=== PATIENT | male | born 1970 | race African-American/Black ===

== ENCOUNTER 2022-10-10 09:10 | Emergency (ER) | payer MEDICAID ==
[~2022-10-10] VITALS: Ht 188 cm; Wt 216.0 kg
[2022-10-10] VITALS (35 sets, daily range): BP systolic 58–153; BP diastolic 26–106
[2022-10-10 09:43] LABS: BASO% 0.2 % (0-3); EOS% 0.8 % (0-8); HEMATOCRIT 44.7 % (39.0-50.0); HEMOGLOBIN 13.6 g/dl (14.0-18.0); IMMATURE GRANULOCYTES 0.3 % (0.0-5.0); LYMPH% 11.4 % (15-41); MEAN CELL VOLUME 93.9 fL CALC (80.0-100.0); MEAN CORPUSCULAR HGB 28.6 pG CALC (26.0-32.0); MEAN CORPUSCULAR HGB CONC 30.4 g/dL CAL (32.0-36.0); MONO% 7.2 % (2-13); NEUT# 9.33 thou/uL (1.82-7.42); NEUT% 80.1 % (42-76); RED BLOOD COUNT 4.76 mill/uL (4.70-6.10); RED CELL DISTRI WIDTH 13.6 % (11.5-15.5)
[2022-10-10 09:53] LABS: ALBUMIN 3.8 g/dL (3.2-5.0); ALKALINE PHOSPHATASE 126 u/l (38-126); ANION GAP 13 (6-22 (CALC)); BILIRUBIN, TOTAL 0.8 mg/dL (0.2-1.3); BUN 17 mg/dL (9-20); BUN/CREATININE RATIO 16 (12-20 (CALC)); CARBON DIOXIDE 26 mmol/l (22-30); CHLORIDE 102 mmol/l (95-108); CREATININE 1.1 mg/dL (0.7-1.3); GFR FOR AFR.AMER. > 60 ML/MIN (>=60 (CALC)); GFR OTHER RACES > 60 ML/MIN (>=60 (CALC)); POTASSIUM 4.5 mmol/l (3.5-5.1); SGOT/AST 38 u/l (17-59); SODIUM 136 mmol/l (137-146); TOTAL PROTEIN 7.8 g/dL (6.3-8.2)
[2022-10-10] MEDS ORDERED: LISINOPRIL5 MG PO (10:44)
[2022-10-10] MEDS ORDERED: JARDIANCE10 MG (10:46)
[2022-10-10] MEDS ORDERED: HUMULIN 70/30 K1 INJ (10:46)
[2022-10-10] MEDS ORDERED: BD PEN NEEDL32 GX4MM (10:46)
[2022-10-10] MEDS ORDERED: AMLODIPINE BESYL5 MG PO (10:47)
[2022-10-10] MEDS ORDERED: CEPHALEXIN500 MG PO (10:47)
[2022-10-10] MEDS ORDERED: DEMADEX20 MG PO (10:47)
[2022-10-10 11:05] LABS: ACT PARTIAL THROMBO TIME 25.7 SECONDS (20.0-32.5)
== END 2022-10-10 18:44 | disposition short-term general hospital (02) ==
LOC: ED 09:10
PROVIDERS: Family Medicine
DX: R07.9 Chest pain, unspecified (principal); I11.0 Hypertensive heart disease with heart failure; I50.9 Heart failure, unspecified; E11.9 Type 2 diabetes mellitus without complications; E66.01 Morbid (severe) obesity due to excess calories; Z79.4 Long term (current) use of insulin; Z20.822 Contact with and (suspected) exposure to COVID-19
CPT/HCPCS: J1644; J2997